=== PATIENT | female | born 1970 | race Caucasian/White ===

== ENCOUNTER → 2024-01-04 13:25 | Outpatient (REF) | payer BC, SELFPAY | LOC: HWWDC 13:25 | PROVIDERS: ATTENDING PHYSICIAN Nurse Practitioner Family | DX: Z15.01 Genetic susceptibility to malignant neoplasm of breast (principal); Z15.09 Genetic susceptibility to other malignant neoplasm; Z12.31 Encounter for screening mammogram for malignant neoplasm of breast | CPT/HCPCS: 77063; 77067 ==

== ENCOUNTER → 2024-12-09 08:17 | Outpatient (REF) | payer BC, SELFPAY | LOC: HWRAD 08:17 | PROVIDERS: ATTENDING PHYSICIAN Obstetrics & Gynecology | DX: Z15.01 Genetic susceptibility to malignant neoplasm of breast (principal); Z15.09 Genetic susceptibility to other malignant neoplasm | CPT/HCPCS: 76830; 76856 ==